=== PATIENT | female | born 1975 | race Caucasian/White ===

== ENCOUNTER 2018-06-30 16:10 | Emergency (ER) | payer MEDICAID, SELFPAY ==
[2018-06-30] VITALS (28 sets, daily range): BP systolic 134–176; BP diastolic 91–131; PULSE 76–108; RESP 12–21; TEMP 36.7; O2SAT 96–99
--- NOTE | 2018-06-30 16:44 | DI.RAD_ITS ---
SYMPTOM/DIAGNOSIS: CHEST AND BACK PAIN PA AND LATERAL CHEST: The heart is normal in size. The lungs are clear. The mediastinal structures and pleura appear intact. CONCLUSION: Normal chest.
[2018-06-30 17:19] LABS: Abs Immature Grans 0.02 k/cumm (0.0-0.09); Absolute Basophil Count 0.03 k/cumm (0.0-0.2); Absolute Eosinophil Count 0.16 k/cumm (0.0-0.7); Absolute Lymphocyte Count 2.27 k/cumm (1.2-3.4); Absolute Monocyte Count 0.81 k/cumm (0.11-0.7); Absolute Neutrophil Count 5.65 k/cumm (1.2-6.7); Basophils % 0.3; Eosinophils % 1.8; HCT 47.5 % (36.0-46.0); HGB 16.3 g/dL (12.0-15.5); Immature Grans % 0.2; Lymphocytes % 25.4; Mean Corp. HGB Concentration 34.3 g/dL (32.0-36.0); Mean Corpuscular Hemoglobin 30.4 pg (27.0-33.0); Mean Corpuscular Volume 88.6 fL (80-95); Monocytes % 9.1; Neutrophils % 63.2; Platelet Count 317 x1000/uL (130-400); RBC 5.36 m/cumm (4.00-5.20); RBC Distribution Width 14.4 % (11.7-14.6); White Blood Cell Count 8.94 k/cumm (4.4-10.8)
[2018-06-30 17:22] LABS: ALT 17 U/L (12-78); AST 15 U/L (15-37); Albumin 3.9 g/dL (3.4-5.0); Alkaline Phosphatase 94 U/L (46-116); Anion Gap 9.6 mmol/L (3-11); BUN 10 mg/dL (7-18); Bilirubin, Direct 0.09 mg/dL (0.00-0.20); Bilirubin, Total 0.5 mg/dL (0.2-1.0); CO2 24.4 mmol/L (21.0-32.0); CREATININE 0.78 mg/dL (0.55-1.02); Chloride 104 mmol/L (98-107); Glucose 130 mg/dL (70-100); Potassium 3.8 mmol/L (3.5-5.1); Sodium 138 mmol/L (136-145); Total Protein 7.6 g/dL (6.4-8.2)
[2018-06-30 17:23] LABS: Troponin I < 0.02 ng/mL (0.00-0.06)
--- NOTE | 2018-06-30 17:29 | DI.VRAD_ITS ---
EXAM: XR Chest, 2 Views CLINICAL HISTORY: 42 years old, female; Pain; Chest pain and other: Back pain; Type not specified; Patient HX: Chest pain, back pain; Additional info: R/O acute disease TECHNIQUE: Frontal and lateral views of the chest. COMPARISON: CR - CHEST 2 VIEWS PA,LAT 03/27/2018 10:48 PM FINDINGS: Lungs: Unremarkable. No consolidation. Pleural space: Unremarkable. No pneumothorax. Heart: Unremarkable. No cardiomegaly. Mediastinum: Unremarkable. Bones/joints: Unremarkable. IMPRESSION: No acute findings. Dictated and Authenticated by: Ry Laureano MD. Ordering:GREGORY RESTREPO MD
[2018-06-30 18:04] LABS: D-Dimer 407 ng/mlFEU (<500)
[2018-06-30 18:14] LABS: PTT Activated 23.8 sec (21.0-31.4); Prothrombin Time 9.6 sec (9.3-10.8)
--- NOTE | 2018-06-30 18:44 | W.ED.GENAD ---
Discharge Plan Disposition Patient Disposition: HOME Condition: Improving Discharge Details Chief Complaint: Chest Pain Clinical Impression: Chest pain, Back pain Primary Care Provider: Laura Lazaro ED Provider: Cecilia Tirado Home Meds and New Rx's Prescriptions: New hydrochlorothiazide 12.5 mg tablet 12.5 mg PO DAILY Qty: 30 RF: 0 albuterol sulfate 90 mcg/actuation aerosol powdr breath activated 2 puff IH Q6H PRN (Reason: shortness of breath or wheezing) Qty: 1 RF: 0 Continue ibuprofen [Advil] 200 MG tablet 800 mg PO PRN PRNRF: 0 arnica flower (bulk) 1 ML tincture 1 ml Topical PRN PRNRF: 0 oxycodone-acetaminophen [Percocet] 1 EACH tablet 1 ea PO HS PRN PRNQty: 5 RF: 0 ranitidine HCl [Zantac] 150 MG tablet 150 mg PO PRN PRNRF: 0 hydrocodone-acetaminophen 1 EACH tablet 1 tab PO Q4H PRN PRNQty: 30 RF: 0 Discharge Instructions Additional Instructions: Smoking cessation is strongly encouraged. Watch your intake of salt and processed foods which may affect your blood pressure. You should receive a call from care management regarding follow-up with a primary care doctor. Return immediately to the emergency department any worsening or new concerning symptoms. Discharge Data Discharge Date/Time-TO BE ENTERED AT DEPARTURE: 06/30/18 21:23 Discharge Physician: Cecilia Tirado Medical Decision Making MDM Narrative Medical decision making narrative: Patient is a 42-year-old female who is a chronic tobacco smoker with history of chronic shoulder pain on Percocet as needed who presents for sudden onset of intense pressure in her middle back which lasted 15 minutes and then resolved. Patient states she had a large amount of gas and burping after that. Patient admits to a 10 minute episode of left-sided chest pain yesterday near her left shoulder which she attributed to her chronic right shoulder pain and denies at present. Patient states today she had pain in her left back that occurred with deep breath and movement. She also admits to cough with yellow thick sputum. She denies fever. She states she has been eating and drinking well. Vitals on arrival noted a heart rate of 108, temp 98.1, respiratory rate 16, oxygen saturation 99 percent, blood pressure 134/97. 1626 -- EKG on arrival notes a rate of 98, sinus, no acute ST elevation or depression, QTc 426, QRS 86. Considering patient's age, complaint of chest and back pain, and tobacco use, a cardiac workup including chest x-ray, d-dimer and urine was ordered. 1834 --labs reviewed and note a white blood cell count of 8.94. Hemoglobin 16.3. D-dimer negative, troponin negative. test negative. Chest x-ray negative. Upon evaluation in room, patient is sitting in bed in no acute distress texting on phone. Patient denies any chest pain at present. She still admits to mild pain in her back with deep breath that is minimal. She denies any shortness of breath. Patient is tenderness to palpation of her left back and left chest. She has pain with movement of her upper body. Discussed with patient the possibilities of her pain which can be musculoskeletal and she is agreeable. Patient was informed of the dangers of smoking and recommended to quit. We will give a dose of Toradol and reassess. Will obtain a second troponin at 8 PM. 2044 --second troponin negative. Patient denies any pain at this time and is requesting to go home. Blood pressure noted to be 174/118 with cuff on forearm. Cuff placed on upper arm and blood pressure 138/92. Patient appears relaxed in no acute distress. Patient states she has had a history of hypertension in the past but has never taken medications. She was instructed on the importance of diet. She is requesting to go home and is requesting a prescription for albuterol and blood pressure medication. We will send home with a prescription for hydrochlorthiazide. We will place patient on the care management list to arrange for follow-up appointment with her primary care doctor, patient is requesting a female PCP. Patient instructed on the importance of quitting smoking. She was instructed to return here immediately with any concerns. Patient was also instructed to monitor her blood pressure daily and that if her blood pressure is too low, do not take the blood pressure medications. Also instructed to alter her intake of salt and processed food and this may help with her blood pressure and she may not need the blood pressure medications. Lab Data Lab Results 06/30/18 06/30/18 06/30/18 Range/Units 16:58 16:58 16:58 WBC 8.94 (4.4-10.8) k/cumm RBC 5.36 H (4.00-5.20) m/cumm Hgb 16.3 H (12.0-15.5) g/dL Hct 47.5 H (36.0-46.0) % MCV 88.6 (80-95) fL MCH 30.4 (27.0-33.0) pg MCHC 34.3 (32.0-36.0) g/dL RDW 14.4 (11.7-14.6) % Plt Count 317 (130-400) x1000/uL MPV 10.0 (8.0-11.0) fL Immature Gran % 0.2 Neutrophils % 63.2 Lymphocytes % 25.4 Monocytes % 9.1 Eosinophils % 1.8 Basophils % 0.3 Absolute Neutrophils 5.65 (1.2-6.7) k/cumm Absolute Lymphocytes 2.27 (1.2-3.4) k/cumm Absolute Monocytes 0.81 H (0.11-0.7) k/cumm Absolute Eosinophils 0.16 (0.0-0.7) k/cumm Absolute Basophils 0.03 (0.0-0.2) k/cumm PT 9.6 (9.3-10.8) sec INR 1.0 (1.0-3.5) APTT 23.8 (21.0-31.4) sec D-Dimer 407 (<500) ng/mlFEU Sodium 138 (136-145) mmol/L Potassium 3.8 (3.5-5.1) mmol/L Chloride 104 (98-107) mmol/L Carbon Dioxide 24.4 (21.0-32.0) mmol/L Anion Gap 9.6 (3-11) mmol/L BUN 10 (7-18) mg/dL Creatinine 0.78 (0.55-1.02) mg/dL Estimated GFR/1.73 m2 >= 60.00 (mL/min/1.73m2) Glucose 130 H (70-100) mg/dL Calcium 9.0 (8.5-10.1) mg/dL Magnesium 2.0 (1.8-2.4) mg/dL Total Bilirubin 0.5 (0.2-1.0) mg/dL Conjugated Bilirubin 0.09 (0.00-0.20) mg/dL AST 15 (15-37) U/L ALT 17 (12-78) U/L Alkaline Phosphatase 94 (46-116) U/L Troponin I < 0.02 (0.00-0.06) ng/mL Total Protein 7.6 (6.4-8.2) g/dL Albumin 3.9 (3.4-5.0) g/dL HPI - General Adult General Mode of arrival: ambulatory. Date/Time Provider Initiated Documentation: 06/30/18 16:41. Limitations to Documentation: no limitations. Information obtained by: patient. HPI Narrative: Patient is a 42-year-old female who presents for a 10-15 minute episode of sudden intense pressure in her mid back that occurred 2 days ago and then resolved followed by burping and gas as well as intermittent left-sided chest pain since yesterday. She denies any chest pain at present. She also admits to cough with white and yellow thick sputum. She denies shortness of breath, fever and states she has been eating and drinking normally. She has a history of chronic left shoulder pain for which she attributed her left-sided chest pain. She states she has also had intermittent left-sided back pain that is worse with deep breath and movement since yesterday. She states she has been eating and drinking normally. She denies recent travel, recent surgery, leg pain or swelling. Past medical history: Chronic shoulder pain Past surgical history: , tooth resection, appendectomy, AC joint repair Social history: Smokes tobacco, denies alcohol or drugs Medications: Percocet as needed, Advil, Zantac Allergies: Prednisone (cramps), latex, red dye, tramadol LMP: 2 weeks ago Related Data Home Medications Medication Instructions Recorded Confirmed arnica flower (bulk) 1 ml TOPICAL PRN PRN 01/26/15 03/27/18 ibuprofen [Advil] 800 mg PO PRN PRN 01/26/15 03/27/18 ranitidine HCl [Zantac] 150 mg PO PRN PRN 04/29/17 03/27/18 Previous Rx's Medication Instructions Recorded oxycodone-acetaminophen [Percocet] 1 ea PO HS PRN PRN #5 tablet 07/31/16 hydrocodone-acetaminophen 1 tab PO Q4H PRN PRN #30 tablet 04/29/17 albuterol sulfate 2 puff IH Q6H PRN #1 each 06/30/18 hydrochlorothiazide 12.5 mg PO DAILY #30 tab 06/30/18 Allergies Allergy/AdvReac Type Severity Reaction Status Date / Time latex Allergy Skin Rash Unverified 03/27/18 22:05 red dye AdvReac Intermediate nausea, Unverified 03/27/18 22:05 vomiting tramadol HCl [From Ultram] AdvReac Intermediate vomiting, Unverified 03/27/18 22:05 motion sickness prednisone AdvReac Other (See Unverified 03/27/18 22:06 Comment) mint flavoring AdvReac Intermediate nausea Uncoded 03/27/18 22:05 vomiting soap with dyes AdvReac Intermediate tingling, Uncoded 03/27/18 22:05 skin cracks General Stated Complaint: Chest Pain RICARDA: 2 Review of Systems Review of Systems All systems reviewed & are unremarkable except as noted in HPI and below Constitutional Denies chills, Denies excessive sweating, Denies fatigue, Denies fever(s), Denies weakness and Denies weight loss Eyes Patient Reports system reviewed and no additional complaints, except as docu and Denies blurry vision ENT Denies vertigo, Denies dizziness, Denies otalgia, Denies nasal congestion, Denies sore throat and Denies throat swelling Cardiovascular Denies chest pain, Denies syncope, Denies rapid heart rate and Denies dyspnea Respiratory Denies dyspnea Gastrointestinal Denies abdominal pain, Denies diarrhea and Denies vomiting Genitourinary Denies hematuria, Denies dysuria and Denies flank pain Musculoskeletal Reports back pain and Denies joint swelling Integumentary/Breasts Denies lesions and Denies rash Neurologic Denies behavioral changes, Denies confusion, Denies vertigo, Denies dizziness, Denies syncope and Denies weakness Psychiatric Denies behavioral changes, Denies confusion and Denies depression Endocrine Denies excessive sweating and Denies fatigue Hematologic/Lymphatic Denies easy bruising and Denies lymphadenopathy Allergic/Immunologic Denies throat swelling [facility] Social History Smoking/Tobacco Use Status: Current every day Surgical History Appendectomy section Exam Const General: cooperative and healthy appearing Orientation: alert and awake HENAR Head: normal to inspection Ears: hearing grossly normal bilaterally and external ears normal General nose exam: external nose normal Face and sinus: normal facial exam Mouth: oral mucosae normal Teeth and gingiva: dentition normal Throat: posterior oropharynx normal Eyes General: appearance normal, both eyes and all related structures Eyelids: eyelids normal Pupils: PERRL EOM: EOM intact bilaterally Neck Neck: normal visual inspection Lymphatic: no lymphadenopathy noted Chest Chest: normal inspection of the chest Chest/axillae images: 1. Localized area of tenderness to palpation. No rash, lesions, ecchymosis or erythema Resp Effort & Inspection: normal respiratory effort and able to speak in complete sentences Auscultation: clear to auscultation bilaterally Cardio Rate: regular rate Rhythm: regular rhythm GI Inspection: normal to inspection Palpation: soft, not firm, no guarding, no hepatosplenomegaly, no masses and nontender Auscultation: normal bowel sounds Back/Spine/Pelvis Back/spine/pelvis image: 1. Localized area of tenderness to palpation. No rash, ecchymosis or erythema. Skin General skin exam: no rashes or lesions noted Neuro General: alert and awake Cognition: normal cognition Speech: speech normal Gait: normal gait Motor: muscle tone normal throughout Sensory Exam: no sensory deficits noted Extrem General: normal to inspection, full ROM, normal capillary refill, no calf tenderness bilaterally and no edema Psych Appearance: grossly normal Mental Status: mental status grossly normal Speech and Movement: speech and movement normal Affect: normal affect Thought Process: normal Course Vital Signs Temperature 98.1 F 06/30/18 16:30 Pulse 108 H 06/30/18 16:30 Respiratory Rate 16 06/30/18 16:30 Blood Pressure 134/97 H 06/30/18 16:30 Pulse Oximetry 99 06/30/18 16:30 Temperature 98.1 F 06/30/18 16:30 Pulse 85 06/30/18 18:16 Respiratory Rate 14 06/30/18 18:20 Blood Pressure 149/104 H 06/30/18 18:16 Pulse Oximetry 98 06/30/18 18:20 Lab/Test Results Lab/Test Results: Laboratory Tests 06/30/18 06/30/18 06/30/18 16:58 16:58 16:58 WBC 8.94 RBC 5.36 H Hgb 16.3 H Hct 47.5 H MCV 88.6 MCH 30.4 MCHC 34.3 RDW 14.4 Plt Count 317 MPV 10.0 Immature Gran % 0.2 Neutrophils % 63.2 Lymphocytes % 25.4 Monocytes % 9.1 Eosinophils % 1.8 Basophils % 0.3 Absolute Neutrophils 5.65 Absolute Lymphocytes 2.27 Absolute Monocytes 0.81 H Absolute Eosinophils 0.16 Absolute Basophils 0.03 PT 9.6 INR 1.0 APTT 23.8 D-Dimer 407 Sodium 138 Potassium 3.8 Chloride 104 Carbon Dioxide 24.4 Anion Gap 9.6 BUN 10 Creatinine 0.78 Estimated GFR/1.73 m2 >= 60.00 Glucose 130 H Calcium 9.0 Magnesium 2.0 Total Bilirubin 0.5 Conjugated Bilirubin 0.09 AST 15 ALT 17 Alkaline Phosphatase 94 Troponin I < 0.02 Total Protein 7.6 Albumin 3.9
[2018-06-30] MEDS: Normal Saline Flush 10 ML SYR IVP (19:00)
[2018-06-30] MEDS: Ketorolac 30 MG/ML VIAL IVP (19:00)
[2018-06-30 20:06] LABS: Troponin I < 0.02 ng/mL (0.00-0.06)
--- NOTE | 2018-07-01 10:13 | PDOC.ERCMPRO ---
Care Management Progress Note 07/01/18-Pt seen on 06/30/18 for high bp and back pain by Dr. Raquel Tirado. 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
== END 2018-06-30 21:23 | disposition home or self-care (01) ==
PROVIDERS: Emergency Provider Physician Assistant; PCP Nurse Practitioner
DX: M54.6 Pain in thoracic spine (principal); R07.9 Chest pain, unspecified; I10 Essential (primary) hypertension; F17.210 Nicotine dependence, cigarettes, uncomplicated
CPT/HCPCS: 36415; 80053; 80076; 81025; 93005; 96374; 99285; 71046; 83735; 84484; 85025; 85379; 85610; 85730; 93010; J1885

== ENCOUNTER 2018-07-24 02:19 | Outpatient (CLI) | payer MEDICAID, SELFPAY ==
[2018-07-24 11:40] LABS: ALT 18 U/L (12-78); AST 14 U/L (15-37); Albumin 3.6 g/dL (3.4-5.0); Alkaline Phosphatase 87 U/L (46-116); BUN 12 mg/dL (7-18); Bilirubin, Total 0.4 mg/dL (0.2-1.0); CREATININE 0.85 mg/dL (0.55-1.02); Calcium 8.8 mg/dL (8.5-10.1); Chloride 104 mmol/L (98-107); Cholesterol 207 mg/dL (50-200); Glucose 102 mg/dL (70-100); HDL Cholesterol 60 mg/dL (40-60); LDL CHOLESTEROL 120 mg/dL (<100); Potassium 4.3 mmol/L (3.5-5.1); Sodium 142 mmol/L (136-145); Total Protein 6.7 g/dL (6.4-8.2); Triglyceride 164 mg/dL (30-150)
== END 2018-07-24 02:39 ==
PROVIDERS: PCP Nurse Practitioner; Visit Provider Nurse Practitioner
DX: I10 Essential (primary) hypertension (principal)
CPT/HCPCS: 36415; 80053; 80061; 83721

== ENCOUNTER 2018-07-24 02:37 | Outpatient (CLI) | payer MEDICAID, SELFPAY ==
[2018-07-24] MEDS: Inhaler, Assist Device 1 EACH MC (16:54)
[2018-07-24] MEDS: Albuterol HFA 18 GM 200 PUFF INH IH (16:54)
--- NOTE | 2018-07-25 10:02 | PFT_ITS ---
PULMONARY FUNCTION TEST REPORT DATE OF SERVICE: July 24, 2018 REQUESTING PROVIDER: Laura Lazaro N.P. Spirometry shows no evidence of obstructive airways disease. No bronchodilator response. Lung volumes show no evidence of restriction. Diffusion capacity normal. Airways resistance normal. IMPRESSION: Overall normal pulmonary function study, however it?s noteworthy that the pre and post bronchodilator spirometry was a very poor patient effort for the expiratory portion of the test. Therefore these results should be taken with caution. AUGUSTA/leonardo D/ SEE SCANNED DOCUMENT IN THE EMR FOR DATA AND GRAPHS
== END 2018-07-24 02:57 ==
PROVIDERS: PCP Nurse Practitioner; Visit Provider Nurse Practitioner
DX: R06.2 Wheezing (principal)
CPT/HCPCS: 94060; 94150; 94726; 94729

== ENCOUNTER 2018-08-06 13:25 | Outpatient (REF) | payer MEDICAID, SELFPAY ==
--- NOTE | 2018-08-06 12:38 | PAPFT_PTH ---
PATIENT: Tiffanie Haskins LOC: [facility] U#:[id number] AGE/SX: 42/F ROOM: RE08/06/[address]: Laura Lazaro : 1975 BED: DIS: 08/06/2018 SPEC #: [id number] RECD: 08/07/18 13:19 STATUS: MIRNA REChioma #: [id number] SYDNEE: 08/06/18 12:[address]: Laura Lazaro DEPT: [facility] Cytology RECD BY: Mercedes David Tissues: 1 - CX/ENDOCX FOR PAP SMEARS Procedures: PAP THIN PREP/UVM Screening HPV DNA PROBE Comments: [id number] (CHLAMYDIA/GC)
[2018-08-08 16:36] LABS: Chlamydia Result Negative; GC Result Negative; Specimen Description SEE COMMENTS
== END 2018-08-06 13:45 ==
LOC: NCHCN 13:25
PROVIDERS: PCP Nurse Practitioner; Visit Provider Nurse Practitioner
DX: Z00.00 Encounter for general adult medical examination without abnormal findings (principal); Z12.4 Encounter for screening for malignant neoplasm of cervix; Z01.419 Encounter for gynecological examination (general) (routine) without abnormal findings; Z11.51 Encounter for screening for human papillomavirus (HPV); Z11.3 Encounter for screening for infections with a predominantly sexual mode of transmission
CPT/HCPCS: 87491; 87591; 88142; 87624

== ENCOUNTER 2018-08-11 00:48 | Outpatient (CLI) | payer MEDICAID, SELFPAY ==
--- NOTE | 2018-08-11 11:07 | DI.CT_ITS ---
SYMPTOMS/DIAGNOSIS: ATYPICAL HEADACHE, R51 CT BRAIN: Noncontrast examination. No priors. There is a normal jain-white matter differentiation. No intracranial hemorrhage, infarct, midline shift or mass effect is identified. The ventricles are intact. The basilar cisterns are patent. There is opacification of a few ethmoid air cells. The remaining visualized paranasal sinuses are clear. No fluid levels are seen. The mastoid air cells are well pneumatized. The calvarium is intact. IMPRESSION: Minimal ethmoid sinusitis. Otherwise negative examination.
== END 2018-08-11 01:08 ==
PROVIDERS: PCP Nurse Practitioner; Visit Provider Nurse Practitioner
DX: R51 Headache (principal); J32.2 Chronic ethmoidal sinusitis
CPT/HCPCS: 70450

== ENCOUNTER 2018-09-05 00:30 | Outpatient (CLI) | payer MEDICAID, SELFPAY ==
--- NOTE | 2018-09-05 12:47 | DI.US_ITS ---
SYMPTOM/DIAGNOSIS: WORSENING DYSMENORRHEA N94.6 PELVIC ULTRASOUND: Transabdominal and transvaginal exams were performed. The uterus measures 9 x 4.7 x 5 cm. No fibroids were identified. The endometrial stripe measures 10 mm in thickness. The ovaries are normal in size and appearance. No cysts or masses are identified. There is no evidence of free fluid or hydronephrosis. IMPRESSION: Pelvic ultrasound is within normal limits.
== END 2018-09-05 00:50 ==
PROVIDERS: PCP Nurse Practitioner; Visit Provider Nurse Practitioner Family
DX: N94.6 Dysmenorrhea, unspecified (principal)
CPT/HCPCS: 76830; 76856

== ENCOUNTER 2021-02-22 13:26 | Outpatient (REF) | payer MEDICAID, SELFPAY ==
[2021-02-22 22:17] LABS: ALT 17 U/L (14-59); AST 8 U/L (15-37); BUN 14 mg/dL (7-18); CREATININE 0.8 mg/dL (0.55-1.02); Calcium 9.3 mg/dL (8.5-10.1); Calculated LDL 90 mg/dL (<100); Chloride 104 mmol/L (98-107); Cholesterol 182 mg/dL (<200); Glucose 93 mg/dL (74-106); HDL Cholesterol 63 mg/dL (40-60); Potassium 4.3 mmol/L (3.5-5.1); Sodium 140 mmol/L (136-145); Triglyceride 146 mg/dL (<150)
[2021-02-22 22:18] LABS: Hemoglobin A1C 5.5 % (<5.7)
== END 2021-02-22 13:27 | disposition home or self-care (01) ==
LOC: NCHCN 13:26
PROVIDERS: PCP Nurse Practitioner; Visit Provider Nurse Practitioner Family
DX: I10 Essential (primary) hypertension (principal); Z13.220 Encounter for screening for lipoid disorders; R73.03 Prediabetes
CPT/HCPCS: 80048; 80061; 83036; 84450; 84460

== ENCOUNTER 2021-07-15 09:35 | Emergency (ER) | payer MEDICAID, SELFPAY ==
[2021-07-15 09:44] VITALS: BP 158/107; PULSE 57; RESP 18; TEMP 36; O2SAT 98
--- NOTE | 2021-07-15 09:57 | ED.GENADUL_ITS ---
Discharge Plan Disposition Patient Disposition: HOME Condition: Stable Discharge Details Clinical Impression: Back pain Primary Care Provider: Laura Lazaro ED Provider: Yue Arrington Home Meds and New Rx's Prescriptions: Continued medroxyprogesterone [Depo-Provera] 150 mg/mL suspension 150 mg IM Q12W Qty: 1 RF: 3 ibuprofen [Advil] 200 MG tablet 800 mg PO PRN PRNRF: 0 arnica flower (bulk) 1 ML tincture 1 ml Topical PRN PRNRF: 0 ranitidine HCl [Zantac] 150 MG tablet 150 mg PO PRN PRNRF: 0 hydrochlorothiazide 12.5 mg tablet 12.5 mg PO DAILY Qty: 30 RF: 0 albuterol sulfate 90 mcg/actuation aerosol powdr breath activated 2 puff IH Q6H PRN (Reason: shortness of breath or wheezing) Qty: 1 RF: 0 Discharge Instructions Instructions: Back Pain (ED) Additional Instructions: X-rays today show no acute abnormality. Please follow-up with your primary care provider to discuss x-ray results. Follow up with primary care provider in 3-5 days. Return to ED sooner if any worsening or concerns. Increase oral fluids. Please take Ibuprofen with food every 4-6 hours as needed for pain and swelling. Do not take any extra Tylenol with the hydrocodone as it has Tylenol in it. Take the hydrocodone with food and no driving or operating heavy machinery while on this medication. Please be seen sooner for any loss of bowel or bladder control. Referrals: Laura Lazaro [Primary Care Provider] - 1 week Discharge Data Discharge Date/Time-TO BE ENTERED AT DEPARTURE: 07/15/21 12:16 Medical Decision Making 45-year-old female presents to the ER with some right lower back pain. She was given baclofen and prednisone which she filled yesterday. She reports that she has been nauseated and did not take the medication this morning. She last took medications last night. She reports that everything hurts. She is moving all 4 extremities without difficulty. 1117: Patient transported to x-ray imaging by DI. Patient has received 2 mg diazepam and 4 mg Zofran ODT. Imaging protocol: XR of the lumbosacral spine. Views: 4 or 5 views. COMPARISON: No relevant prior studies available. FINDINGS: Bones/joints: Mild anterior osteophyte formation L1 through L5. There is no evidence of acute fracture.There is no evidence of malalignment or dislocation. Intervertebral disc spaces are maintained. Soft tissues: Unremarkable. IMPRESSION: 1. There is no evidence of acute fracture.There is no evidence of malalignment or dislocation. 2. Intervertebral disc spaces are maintained. Thank you for allowing us to participate in the care of your patient. Dictated and Authenticated by: Kole Gonzalez MD Patient given hydrocodone Tylenol 1 here in the department and 4 to go as needed for pain. Instructed to follow-up with PCP and discuss strict return instructions and red flags, verbalized understanding. This text was generated using [employer] dictation system, please disregard any oddities of phrase or misspellings. HPI General Mode of arrival: ambulatory . Date/Time Provider Initiated Documentation: 07/15/21 09:40 . Limitations to Documentation: no limitations . Information obtained by: patient, family (Mother), RN notes reviewed and old records reviewed . HPI Narrative: 45-year-old female presents to the ER with chief complaint of lower back pain but she has been seen for previously by her pcp and prescribed baclofen and prednisone that she got filled yesterday. She did not take it this morning due to nausea. 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 She reports that it started Saturday 8 PM after working a shift. She denies any loss of bowel or bladder control she does report right parasp inous lower lumbar tenderness which radiates around to her right hip. She denies any loss of bowel or bladder control denies any problems urinating or burning with urination no urinary hesitancy or constipation. Related Data Home Medications Medication Instructions Recorded Confirmed arnica flower (bulk) 1 ml TOPICAL PRN PRN 01/26/15 12/04/18 ibuprofen [Advil] 800 mg PO PRN PRN 01/26/15 12/04/18 ranitidine HCl [Zantac] 150 mg PO PRN PRN 04/29/17 12/04/18 albuterol sulfate 2 puff IH Q6H PRN #1 each 06/30/18 12/04/18 hydrochlorothiazide 12.5 mg PO DAILY #30 tab 06/30/18 12/04/18 medroxyprogesterone 150 mg/mL 150 mg IM Q12W #1 ml 06/20/21 06/20/21 intramuscular suspension Previous Rx's Medication Instructions Recorded albuterol sulfate 2 puff IH Q6H PRN #1 each 06/30/18 hydrochlorothiazide 12.5 mg PO DAILY #30 tab 06/30/18 medroxyprogesterone 150 mg/mL 150 mg IM Q12W #1 ml 06/20/21 intramuscular suspension Allergies Allergy/AdvReac Type Severity Reaction Status Date / Time latex Allergy Skin Rash Verified 06/20/21 08:51 red dye AdvReac Intermediate nausea, Verified 06/20/21 08:51 vomiting tramadol HCl [From Ultram] AdvReac Intermediate vomiting, Verified 06/20/21 08:51 motion sickness prednisone AdvReac Other (See Verified 06/20/21 08:51 Comment) mint flavoring AdvReac Intermediate nausea Uncoded 06/20/21 08:51 vomiting soap with dyes AdvReac Intermediate tingling, Uncoded 06/20/21 08:51 skin cracks General Stated Complaint: Nk/Back Pain RICARDA: 4 Review of Systems All systems reviewed & are unremarkable except as noted in HPI and below Musculoskeletal Musculoskeletal: Reports back pain PFSH Medical History (Updated 07/15/21 @ 12:01 by Yue Arrington) Back pain Current smoker Current smoker Dysmenorrhea, unspecified Headache Hyperlipidemia Hypertension Impaired fasting glucose Migraine Pain in joint of left shoulder Pain in left knee Pain of left foot Wheezing Surgical History (Updated 07/30/18 @ 14:37 by [employer] MA) Appendectomy section Family History Father Diabetes CAD (coronary artery disease) Sister Thyroid disorder Maternal Grandmother Breast cancer Social History Smoking/Tobacco Use Status: Current every day Tobacco Type: cigarettes Smoking risk assessment performed?: Yes Drug use: Never Do you feel safe at home: Yes Do you feel safe in your relationship?: Yes Female Reproductive History Menstrual control method: progesterone injection History History 4 Para 1 Hx # Term Pregnancies Multiple births Hx # Pregnancies Ectopic pregnancies AB induced Hx Number of Living Children AB spontaneous Exam Narrative Exam Narrative: Constitutional: Alert and oriented x3. Appears stated age. Normal body habitus. Head: Normocephalic, no trauma. Eyes: Pupils PERRLA, Red reflex noted, EOM's intact. Eyelids symmetrical without lesions, discharge, or swelling. ENT: Bilateral TM's WNL, External ear normal to inspection, no mastoid TTP, swelling, or erythema, Nasal turbinates WNL, no nasal discharge. Normal dentition, Posterior pharynx WNL, no exudate. Chest: RRR, Normal S1, S2, distal pulses intact. Resp: Lungs clear to auscultation bilaterally, no wheezes, rales, or rhonchi. Musculoskeletal: Normal gait, 5/5 strength to all four extremities. Right paraspinous lower lumbar tenderness with palpation no midline tenderness. No crepitus no step-off. Skin: No suspicious rashes or lesions. Capillary refill less than 2 sec. Neurologic: Cranial nerves II-XII intact. Alert and oriented x 3. DTR's intact. Hematologic/Lymphatic: No ecchymosis, no lymphadenopathy. Course Vital Signs Vital signs: Vital Signs Temperature 36.0 C L 07/15/21 09:44 Pulse 57 L 07/15/21 09:44 Respiratory Rate 18 07/15/21 09:44 Blood Pressure 158/107 H 07/15/21 09:44 Pulse Oximetry 98 07/15/21 09:44 Temperature 36.0 C L 07/15/21 09:44 Temperature Source Tympanic 07/15/21 09:44 Pulse 57 L 07/15/21 09:44 Respiratory Rate 18 07/15/21 09:44 Respiratory Effort Non-Labored 07/15/21 09:49 Blood Pressure 158/107 H 07/15/21 09:44 Pulse Oximetry 98 07/15/21 09:44 Oxygen Delivery Method Room Air 07/15/21 09:44 Oxygen Flow Rate 0 07/15/21 09:44 Pain Level 7 07/15/21 09:44
--- NOTE | 2021-07-15 10:00 | DI.RAD_ITS ---
Exam(s) XR LUMBAR SPINE COMPLETE EXAM: XR LUMBAR SPINE COMPLETE CLINICAL HISTORY: Low back pain. TECHNIQUE: 2D digital imaging was performed of the lumbar spine. Six images were obtained. AP, lat eral, right oblique, left oblique and L5-S1 spot views were obtained. COMPARISON: No exams were available for comparison FINDINGS: BONES: No fracture or destructive lesion. Mild anterior osteophytes are seen at multiple levels. No facet hypertrophy identified. DISKS: Intervertebral disc spaces are maintained. ALIGNMENT: Lumbar spinal alignment is within normal limits. No spondylolysis or spondylolisthesis. SOFT TISSUE: Normal. IMPRESSION: 1. No acute abnormality. 2. Mild degenerative changes in the lumbar spine. DATA REPOSITORY: RADIATION DOSE DELIVERED:
[2021-07-15] MEDS: diazePAM 2 MG TAB PO (10:36)
[2021-07-15] MEDS: Ondansetron O.D.T. 4 MG TABEF PO (10:37)
--- NOTE | 2021-07-15 11:49 | DI.VRAD_ITS ---
PROCEDURE INFORMATION: Exam: XR Lumbosacral Spine Exam date and time: 07/15/2021 10:14 AM Age: 45 years old Clinical indication: Other: Low back pain TECHNIQUE: Imaging protocol: XR of the lumbosacral spine. Views: 4 or 5 views. COMPARISON: No relevant prior studies available. FINDINGS: Bones/joints: Mild anterior osteophyte formation L1 through L5. There is no evidence of acute fracture.There is no evidence of malalignment or dislocation. Intervertebral disc spaces are maintained. Soft tissues: Unremarkable. IMPRESSION: 1. There is no evidence of acute fracture.There is no evidence of malalignment or dislocation. 2. Intervertebral disc spaces are maintained. Dictated and Authenticated by: Kole Gonzalez MD. Ordering:NICOLETTE Turner MD
[2021-07-15] MEDS: HYDROcodone 5/Acetaminophen 325 TAB PO (12:07)
[2021-07-15 12:09] VITALS: BP 145/97; PULSE 78; RESP 18; O2SAT 97
== END 2021-07-15 12:16 | disposition home or self-care (01) ==
PROVIDERS: Emergency Provider Registered Nurse Emergency; PCP Nurse Practitioner
DX: M54.50 Low back pain, unspecified (principal); R11.0 Nausea
CPT/HCPCS: 99283; 72110

== ENCOUNTER 2021-12-05 09:52 | Outpatient (REF) | payer BC, SELFPAY ==
--- NOTE | 2021-12-05 09:30 | PAPFT_PTH ---
PATIENT: Tiffanie Haskins LOC: [facility] U#:[id number] AGE/SX: 46/F ROOM: RE12/05/[address]: AIME Wolfe : 1975 BED: DIS: 12/05/2021 SPEC #: [id number] RECD: 12/05/21 12:55 STATUS: MIRNA REChioma #: [id number] SYDNEE: 12/05/21 09:[address]: Renetta Rivas DEPT: [facility] Cytology RECD BY: Mercedes David ENTERED: 12/05/21 12:56 SP TYPE: PAPFT OTHR DR: Laura Lazaro Tissues: 1 - CX/ENDOCX FOR PAP SMEARS Procedures: PAP THIN PREP/UVM Screening HPV DNA PROBE Comments: [id number]
== END 2021-12-05 09:53 | disposition home or self-care (01) ==
LOC: LBN 09:52
PROVIDERS: PCP Nurse Practitioner; Visit Provider Nurse Practitioner Family
DX: Z12.4 Encounter for screening for malignant neoplasm of cervix (principal); Z11.51 Encounter for screening for human papillomavirus (HPV)
CPT/HCPCS: 88142; 87624

== ENCOUNTER 2022-05-22 20:25 | Outpatient (REF) | payer BC, SELFPAY ==
[2022-05-23 11:36] LABS: HSV 1 DNA Result Negative (Negative); HSV 2 DNA Result Positive (Negative)
== END 2022-05-22 20:26 | disposition home or self-care (01) ==
LOC: LBN 20:25
PROVIDERS: PCP Nurse Practitioner Family; Visit Provider Nurse Practitioner Family
DX: N90.89 Other specified noninflammatory disorders of vulva and perineum (principal)
CPT/HCPCS: 87529

== ENCOUNTER 2022-08-01 10:12 | Outpatient (REF) | payer BC, SELFPAY ==
[2022-08-01 15:13] LABS: Anion Gap 7.8 mmol/L (3-11); BUN 21 mg/dL (7-18); CO2 27.2 mmol/L (21.0-32.0); CREATININE 0.9 mg/dL (0.55-1.02); Calcium 9.2 mg/dL (8.5-10.1); Chloride 108 mmol/L (98-107); Estimated GFR 78.86 (mL/min/1.73m2); Glucose 114 mg/dL (74-106); Potassium 3.8 mmol/L (3.5-5.1); Sodium 143 mmol/L (136-145)
[2022-08-01 15:29] LABS: Hemoglobin A1C 5.9 % (<5.7)
== END 2022-08-01 10:13 | disposition home or self-care (01) ==
LOC: NCHCN 10:12
PROVIDERS: PCP Nurse Practitioner Family; Visit Provider Family Medicine
DX: I10 Essential (primary) hypertension (principal); R73.03 Prediabetes; Z00.00 Encounter for general adult medical examination without abnormal findings; G43.909 Migraine, unspecified, not intractable, without status migrainosus
CPT/HCPCS: 80048; 83036

== ENCOUNTER 2023-02-05 01:43 | Outpatient (CLI) | payer BC, SELFPAY ==
--- NOTE | 2023-02-05 15:17 | DI.MAMMO_ITS ---
Exam(s) MAMMO SCREENING EXAM: MAMMO SCREENING CLINICAL HISTORY: screening TECHNIQUE: Bilateral full field digital CC and MLO mammographic images were obtained with 3D tomosyn thesis and utilizing computer aided detection (CAD). COMPARISON: There are no priors for comparison. This is a baseline examination. FINDINGS: Masses/Architectural Distortion: None seen. Microcalcifications: No suspicious pleomorphic-type are seen. Skin Thickening/Nipple Retraction: None. IMPRESSION: 1. No significant interval change with no specific features of malignancy noted. 2. Unless there is more urgent need, screening mammography is recommended, as per [employer] guidelines. BI-RADS Category 1 - Negative Breast Density - Category B - Scattered areas of fibroglandular density Breast density category C or D implies that the patient has dense breast tissue. Dense breast tissue is very common and is not abnormal but dense breast tissue can make it harder to find cancer on a ma mmogram. Also, dense breast tissue may increase their breast cancer risk. This information about the result of the mammogram report was provided to the patient to raise their awareness. Use this report when you speak with the patient about their risks for breast cancer, which includes their family hist ory. At that time, you may recommend for more screening tests (Ultrasound or MRI) as they might be us eful based on their risk. A negative radiographic report should not delay biopsy if a dominant or clinically suspicious mass is present. Up to ten percent of cancers are not identified on mammography. A negative report may reinforce clinical impression. Adenosis and dense breasts may obscure an underlying neoplasm. False positive reports average 6 to 10%. Patient will receive a letter notifying them of these results.
== END 2023-02-05 02:03 ==
LOC: DI 01:43
PROVIDERS: PCP Nurse Practitioner Family; Visit Provider Nurse Practitioner Women's Health
DX: Z12.31 Encounter for screening mammogram for malignant neoplasm of breast (principal)
CPT/HCPCS: 77063; 77067

== ENCOUNTER 2023-08-13 14:38 | Outpatient (REF) | payer BC, SELFPAY ==
[2023-08-13 14:48] LABS: HCT 49.8 % (36.0-46.0); HGB 16.4 g/dL (11.2-15.7); MCH 30.4 pg (27.0-33.0); MCHC 32.9 % (32.0-36.0); MCV 92 fL (80-95); MPV 10.3 fL (8.0-11.0); Platelet Count 342 10^3/uL (130-400); RBC 5.39 10^6/uL (3.93-5.22); RDW 13.3 % (11.7-14.6); RDW-SD 45.4 fL
[2023-08-13 15:06] LABS: ALT 21 U/L (14-59); AST 12 U/L (15-37); Albumin 4.4 g/dL (3.4-5.0); Alkaline Phosphatase 104 U/L (46-116); Anion Gap 13.1 mmol/L (3-11); BUN 16 mg/dL (7-18); Bilirubin, Total 0.9 mg/dL (0.2-1.0); CO2 24.9 mmol/L (21.0-32.0); CREATININE 0.8 mg/dL (0.55-1.02); Calcium 9.8 mg/dL (8.5-10.1); Calculated LDL 150 mg/dL (<100); Chloride 104 mmol/L (98-107); Cholesterol 244 mg/dL (<200); Estimated GFR 90.27 (mL/min/1.73m2); Glucose 108 mg/dL (74-106); HDL Cholesterol 67 mg/dL (40-60); Potassium 4.2 mmol/L (3.5-5.1); Sodium 142 mmol/L (136-145); Total Protein 7.8 g/dL (6.4-8.2); Triglyceride 138 mg/dL (<150)
[2023-08-13 15:34] LABS: Hemoglobin A1C 5.6 % (<5.7)
== END 2023-08-13 14:39 | disposition home or self-care (01) ==
LOC: NCHCN 14:38
PROVIDERS: PCP Nurse Practitioner Family; Visit Provider Nurse Practitioner Family
DX: Z00.00 Encounter for general adult medical examination without abnormal findings (principal); I10 Essential (primary) hypertension; R73.03 Prediabetes
CPT/HCPCS: 80053; 80061; 85027; 83036

== ENCOUNTER 2023-10-29 06:58 | Day surgery (SDC) | payer BC, SELFPAY ==
--- NOTE | 2023-10-28 17:31 | W.ANESPRE ---
General Info Date of Service Date Performed: 10/29/23 Height: 5 ft 5 in Weight: 81.647 kg Body Mass Index (BMI): 29.9 Surgical Procedure: Operation Date: 10/29/23 08:05 Proposed Procedure Side Surgeon franklyn Sung MD Meds Allergies and Home Medications Allergies Allergy/AdvReac Type Severity Reaction Status Date / Time prednisone Allergy Mild Verified 10/29/23 07:19 latex Allergy Skin Rash Verified 10/29/23 07:19 red dye AdvReac Intermediate nausea, Verified 10/29/23 07:19 vomiting tramadol HCl [From Ultram] AdvReac Intermediate vomiting, Verified 10/29/23 07:19 motion sickness mint flavoring AdvReac Intermediate nausea Uncoded 10/29/23 07:19 vomiting soap with dyes AdvReac Intermediate tingling, Uncoded 10/29/23 07:19 skin cracks Home Medication Medication Instructions Recorded arnica flower (bulk) 1 ml topical PRN PRN 01/26/15 albuterol sulfate 90 mcg/actuation 2 puff inhalation Q6H PRN 06/30/18 breath activated powder inhaler shortness of breath or wheezing #1 ea hydrochlorothiazide 12.5 mg tablet 12.5 mg PO DAILY #30 tabs 06/30/18 omeprazole 20 mg capsule,delayed 20 mg PO DAILY 12/05/21 release medroxyprogesterone 150 mg/mL 150 mg IM Q12W #1 mL 01/14/23 intramuscular suspension (Depo-Provera) valacyclovir 500 mg tablet 500 mg PO Q12H #6 tabs 01/15/23 (Valtrex) bisacodyl 5 mg tablet,delayed 5 mg PO ONCE #4 tabs 10/10/23 release (Dulcolax (bisacodyl)) polyethylene glycol 3350 17 17 g PO ONCE #238 grams 10/10/23 gram/dose oral powder meclizine 25 mg tablet (Dramamine 25 mg PO BID-TID PRN 10/28/23 (meclizine)) Current Visit Medications: Current Medications Generic Name Dose Route Start Last Admin Trade Name Freq PRN Reason Stop Dose Admin Ringer's Solution 1,000 mls @ 80 mls/hr 10/29/23 06:00 IV 10/29/23 23:59 INFUSION KUNAL IV Miscellaneous Supplies 1 each 10/29/23 06:00 Iv Access IV 10/29/23 23:59 DIRECTED KUNAL Sodium Chloride 0 ml 10/29/23 06:00 Normal Saline Flush 10 Ml Syr IV 10/29/23 23:59 PRN PRN Sodium Chloride 0 ml 10/29/23 06:00 Normal Saline 10 Ml Vial IJ 10/29/23 23:59 DIRECTED PRN Sterile Water 0 ml 10/29/23 06:00 Water,Injection,Sterile 10 Ml Vial IJ 10/29/23 23:59 DIRECTED PRN PFSH Active Problems Active Problems: Problem Status Onset Code Encounter for Depo-Provera contraception Z30.42 Non-ulcer dyspepsia K30 HSV (herpes simplex virus) anogenital infection A60.9 Current smoker F17.200 Back pain M54.9 Migraine G43.909 Wheezing R06.2 Hypertension I10 Impaired fasting glucose R73.01 Hyperlipidemia E78.5 Headache R51 Medical History Medical History Current smoker Pain in joint of left shoulder Pain of left foot Pain in left knee Surgical History Surgical History Hx of shoulder surgery section Appendectomy Tobacco Smoking/Tobacco Use Status: Current every day Tobacco Type: cigarettes Smoking packs per day: 1.5 Smoking cigarettes per day: 30.0 Alcohol Alcohol Intake: never Substance Use Substance use: Daily Substance use type: marijuana Prental History History 4 Para 1 Hx # Term Pregnancies Multiple births Hx # Pregnancies Ectopic pregnancies AB induced Hx Number of Living Children AB spontaneous Vital Signs and Lab Results Vital Signs Most Recent Vital Signs in EMR: Temp Pulse Resp BP Pulse Ox 36.7 C 99 H 18 141/87 H 99 10/29/23 07:22 10/29/23 07:22 10/29/23 07:22 10/29/23 07:22 10/29/23 07:22 Lab Results Blood Type / Crossmatch: No Data to Display Complete Blood Count: No Data to Display Complete Metabolic Panel: No Data to Display Liver Function Panel: No Data to Display Coagulation Panel: No Data to Display Cardiac Panel: No Data to Display Arterial Blood Gas: No Data to Display Venous Blood Gas: No Data to Display Pancreas Panel: No Data to Display Thyroid Panel: No Data to Display Infectious Disease: No Data to Display Blood Cultures: No Data to Display Toxicology Panel: No Data to Display Panel: No Data to Display Imaging and Studies Imaging and Studies Study information below may be from another EMR and interpreted by another provider. Please see original notes in EMR for more complete details. Pulmonary Function Summary: 2018: normal. poor pt participation. Anesthesia Assessment and Plan Anesthesia History Personal History: No History of Anesthesia Complications Family History: No Family History of Anesthesia Complications Exercise Tolerance Exercise Tolerance: Metabolic Equivalents>4 Cardiac & Pulmonary Exam Cardiac Exam: Normal S1/S2 Heart Sounds Pulmonary Exam: Clear Bilateral Breath Sounds Implantable Cardiac Device Does patient have a Pacemaker or an ICD?: No Airway Exam Known Difficult Airway: No Mallampati Class: 3 Mouth Opening: Normal (> 3cm) Thyromental Distance: Greater than 3 cm Neck Range of Motion: Full ROM Neck Circumference: Thick Teeth Condition: Normal Dentition and Removable Dentures/Plates Upper ASA Classification ASA Score: ASA 2 Emergency Case?: No NPO Status NPO Status: NPO Clears >2 hours, Solids >8 hours Status Status: Positive HCG (has not had sex in 4 years. ) Anesthesia Plan Resuscitation Status: Full Code Anesthesia Technique: General Anesthesia Airway Planned: Natural Airway Monitors Used: Standard Monitors Preoperative Comments:: 48 yo female for colo. Sig PMHx: RAD (albuterol, normal PFT years ago), GERD (omeprazole) smoker, cannabis.
[2023-10-29 07:22] VITALS: BP 141/87; PULSE 99; RESP 18; TEMP 36.7; O2SAT 99
[2023-10-29] MEDS: Lactated Ringers 1,000 ML 80 ML IV (07:45)
[2023-10-29 08:01] VITALS: BMI 29.9
--- NOTE | 2023-10-29 08:06 | COLE_ITS ---
Date of service: 10/29/23 Time of Service: 08:06 Colonoscopy Report Procedure Description: PROCEDURES PERFORMED: 1. Colonoscopy with hot snare polypectomy x2 PREOPERATIVE DIAGNOSIS: Screening colonoscopy POSTOPERATIVE DIAGNOSIS: Colon polyps SURGEON: Broderick Sung MD INDICATION FOR PROCEDURE: The patient is a 48-year-old woman without symptoms due for screening colonoscopy. No family history of colon cancer but has a sister who had advanced adenomatous polyp. FINDINGS: Normal terminal ileum. In the sigmoid colon a 10-12 mm sessile polyp was removed with hot snare technique. Further along in the sigmoid colon another 7-5 mm polyp was removed with hot snare technique. No obvious diverticular disease and no hemorrhoid disease was noted. SURVEILLANCE interval/FOLLOW-UP: 3 years because of the family history and the findings today. SPECIMENS: yes EBL: Minimal COMPLICATIONS: None QUALITY of prep: Excellent Procedure in detail: The patient gave written consent and was in agreement with the indications, the potential risks as well as the benefits of the procedure. They taken to the endoscopy suite and laid in the left lateral decubitus position. A timeout was performed and anesthesia was administered which was tolerated well. I started the procedure. Digital rectal and visual examination was performed and grossly within normal limits. A well-lubricated flexible colonoscope was then introduced and passed without any notable difficulty all the way to the cecum identified by the ileocecal valve and the appendiceal orifice. The terminal ileum was briefly intubated and looked normal. The scope was then slowly withdrawn with the abo ve-noted findings. The patient tolerated the procedure well and was taken to the PACU in hemodynamically stable condition.
--- NOTE | 2023-10-29 08:09 | W.PM.DSUDISC ---
Date of service: 10/29/23 Time of Service: 08:09 Discharge Plan Disposition Patient Disposition: Home Condition: Good Discharge Details Attending Provider: Bg Sung Primary Care Provider: Hayley Henson Home Meds and New Rx's Prescriptions: No Action omeprazole 20 mg capsule,delayed release(DR/EC) 20 mg PO DAILY valacyclovir [Valtrex] 500 mg tablet 500 mg PO Q12H Qty: 6 5RF bisacodyl [Dulcolax (bisacodyl)] 5 mg tablet,delayed release (DR/EC) 5 mg PO ONCE Qty: 4 0RF Rx Instructions: Take per colonoscopy instructions provided by ordering providers office polyethylene glycol 3350 17 gram/dose powder 17 g PO ONCE Qty: 238 0RF Rx Instructions: Take per colonoscopy instructions provided by ordering providers office medroxyprogesterone [Depo-Provera] 150 mg/mL suspension 150 mg IM Q12W Qty: 1 3RF arnica flower (bulk) 1 ML tincture 1 ml Topical PRN PRN hydrochlorothiazide 12.5 mg tablet 12.5 mg PO DAILY Qty: 30 0RF albuterol sulfate 90 mcg/actuation aerosol powdr breath activated 2 puff IH Q6H PRN (Reason: shortness of breath or wheezing) Qty: 1 0RF Rx Instructions: administer with spacer meclizine [Dramamine (meclizine)] 25 mg tablet 25 mg PO BID-TID PRN Discharge Instructions Additional Instructions: FINDINGS: A couple of advanced polyps were found and removed from your colon today. This is why we do the colonoscopy. You will get called with the pathology results in a couple of weeks. You should repeat another colonoscopy in 3 years. Stand Alone Forms: Colonoscopy Post Instructions Activity:: Activity as Tolerated Diet:: As Tolerated Discharge Orders Discharge Orders: Discharge Order (Routine); Ordered 10/29/23 Ordered By: Bg Sung
--- NOTE | 2023-10-29 08:14 | SUR.PREOP ---
Dr. Sung and Dave Mclean, [facility] were made aware of positive HCG test today during pre-op admission
--- NOTE | 2023-10-29 08:24 | BOWEL_PTH ---
PATIENT: Tiffanie Haskins LOC: [facility] U#:[id number] AGE/SX: 48/F ROOM: RE10/29/[address]: Bg Sung : 1975 BED: DIS: 10/29/2023 SPEC #: [id number] RECD: 10/29/23 12:37 STATUS: MIRNA CLAIRE #: [id number] SYDNEE: 10/29/23 08:[address]: Bg Sung DEPT: Surgical Specimen RECD BY: Mercedes David ENTERED: 10/29/23 12:38 SP TYPE: Bowel OTHR DR: Hayley Henson Tissues: 1 - BIOPSY BOWEL 2 - BIOPSY BOWEL Procedures: GROSS AND MICRO LEVEL 4 Comments: [id number]
[2023-10-29 08:42] VITALS: PULSE 73; RESP 16; TEMP 36.4; O2SAT 99
--- NOTE | 2023-10-29 08:47 | W.ANESPOSTOP ---
Postoperative Evaluation Date, Time and Location Date Performed: 10/29/23 Time Performed: 08:47 Patient Location: Day Surgery Unit Vital Signs Most Recent Imported Vital Signs: Most Recent Vital Signs Temp Pulse Resp BP Pulse Ox 36.4 C L 73 16 141/87 H 99 10/29/23 08:42 10/29/23 08:42 10/29/23 08:42 10/29/23 07:22 10/29/23 08:42 Pain Score Most Recent Pain Score: Most Recent Pain Score Pain Level 0 10/29/23 08:42 Assessment Mental Status: Awake (Alert & Oriented to Patient Baseline) Airway and Respiratory Function: Patent airway with normal (patient baseline) respiratory exam Cardiovascular Function: Hemodynamically Stable Hydration Status: Adequately Hydrated Nausea & Vomiting: No Nausea or Vomiting Pain: Pt. Denies Any Pain Peripheral Nerve Block: Patient did not receive a nerve block
[2023-10-29 09:10] VITALS: BP 117/88; PULSE 82; RESP 16; TEMP 36.6; O2SAT 99
== END 2023-10-29 09:36 | disposition home or self-care (01) ==
PROVIDERS: PCP Nurse Practitioner Family; Visit Provider Student in an Organized Health Care Education/Training Program
PROC: 0DJD8ZZ Inspection of Lower Intestinal Tract, Via Natural or Artificial Opening Endoscopic (ICD-10-PCS; CPT 45378; principal; 2023-10-29 08:00)
DX: Z12.11 Encounter for screening for malignant neoplasm of colon (principal); K63.5 Polyp of colon; F17.200 Nicotine dependence, unspecified, uncomplicated; I10 Essential (primary) hypertension; F10.20 Alcohol dependence, uncomplicated; K21.9 Gastro-esophageal reflux disease without esophagitis; J45.909 Unspecified asthma, uncomplicated
CPT/HCPCS: 45385; 123; 81025; 88305; 00123; J2704

== ENCOUNTER 2024-08-18 14:03 | Outpatient (REF) | payer BC, SELFPAY ==
[2024-08-18 16:37] LABS: HCT 45.1 % (36.0-46.0); HGB 15.2 g/dL (11.2-15.7); MCH 31.2 pg (27.0-33.0); MCHC 33.7 % (32.0-36.0); MCV 93 fL (80-95); MPV 10.9 fL (8.0-11.0); Platelet Count 314 10^3/uL (130-400); RBC 4.87 10^6/uL (3.93-5.22); RDW 13.2 % (11.7-14.6); RDW-SD 45.1 fL; WBC 7.89 10^3/uL (4.4-10.8)
[2024-08-18 16:50] LABS: ALT 16 U/L (14-59); AST 12 U/L (15-37); Albumin 3.6 g/dL (3.4-5.0); Alkaline Phosphatase 98 U/L (46-116); Anion Gap 10.5 mmol/L (3-11); BUN 15 mg/dL (7-18); CO2 24.5 mmol/L (21.0-32.0); Calcium 9.2 mg/dL (8.5-10.1); Calculated LDL 100 mg/dL (<100); Chloride 108 mmol/L (98-107); Cholesterol 186 mg/dL (<200); Estimated GFR 68.63 (mL/min/1.73m2); Glucose 137 mg/dL (74-106); HDL Cholesterol 49 mg/dL (40-60); Potassium 3.9 mmol/L (3.5-5.1); Sodium 143 mmol/L (136-145); Total Protein 6.8 g/dL (6.4-8.2); Triglyceride 186 mg/dL (<150)
[2024-08-18 17:00] LABS: Hemoglobin A1C 5.8 % (<5.7)
== END 2024-08-18 14:04 | disposition home or self-care (01) ==
LOC: NCHCN 14:03
PROVIDERS: PCP Nurse Practitioner Family; Visit Provider Nurse Practitioner Family
DX: Z00.00 Encounter for general adult medical examination without abnormal findings (principal); R73.03 Prediabetes
CPT/HCPCS: 80053; 80061; 85027; 83036

== ENCOUNTER 2025-04-26 02:28 | Outpatient (CLI) | payer BC, SELFPAY ==
--- NOTE | 2025-04-26 | DI.MAMMO_ITS ---
Exam(s) MAMMO SCREENING EXAM: MAMMO SCREENING CLINICAL HISTORY: Screening, Z12.31 TECHNIQUE: Bilateral full field digital CC and MLO mammographic images were obtained with 3D tomosynthesis and utilizing computer aided detection (CAD). COMPARISON: Comparison is made with prior examinations. FINDINGS: Masses/Architectural Distortion: No suspicious masses or areas of architectural distortion are present. Microcalcifications: No suspicious pleomorphic-type are seen. Skin Thickening/Nipple Retraction: None. IMPRESSION: 1. No significant interval change with no specific features of malignancy noted. 2. Unless there is more urgent need, screening mammography is recommended, as per [employer] guidelines. BI-RADS Category 1 - Negative Breast Density - Category B - There are scattered areas of fibroglandular density. Breast density Category C or D implies that the patient has dense breast tissue. Dense breast tissue can make it harder to find cancer on a mammogram. Dense breast tissue is also associated with an increased risk of breast cancer. This information about the result of the mammogram report was provided to the patient to raise their awareness. Use this report when you speak with the patient about their risks for breast cancer, which includes their family history. At that time, you may recommend additional screening tests (Ultrasound or MRI) as these tests may add significant information. A negative radiographic report should not delay biopsy if a dominant or clinically suspicious mass is present. Up to ten percent of cancers are not identified on mammography. A negative report may reinforce clinical impression. Adenosis and dense breasts may obscure an underlying neoplasm. False positive reports average 6 to 10%. Patient will receive a letter notifying them of these results.
== END 2025-04-26 02:48 ==
LOC: DI 02:28
PROVIDERS: PCP Family Medicine; Visit Provider Nurse Practitioner Family
DX: Z12.31 Encounter for screening mammogram for malignant neoplasm of breast (principal); R92.323 Mammographic fibroglandular density, bilateral breasts
CPT/HCPCS: 77063; 77067

== ENCOUNTER 2025-06-08 15:27 | Outpatient (REF) | payer BC, SELFPAY ==
[2025-06-08 16:10] LABS: ALT 18 U/L (14-59); AST 12 U/L (15-37); Albumin 3.8 g/dL (3.4-5.0); Alkaline Phosphatase 99 U/L (46-116); Anion Gap 11.6 mmol/L (3-11); BUN 14 mg/dL (7-18); Bilirubin, Total 0.5 mg/dL (0.2-1.0); CO2 26.4 mmol/L (21.0-32.0); Calcium 9.0 mg/dL (8.5-10.1); Chloride 104 mmol/L (98-107); Estimated GFR 77.40 (mL/min/1.73m2); Glucose 185 mg/dL (74-106); Potassium 3.5 mmol/L (3.5-5.1); Sodium 142 mmol/L (136-145); Total Protein 6.9 g/dL (6.4-8.2)
== END 2025-06-08 15:28 | disposition home or self-care (01) ==
LOC: NCHCN 15:27
PROVIDERS: PCP Family Medicine; Visit Provider Nurse Practitioner Family
DX: I10 Essential (primary) hypertension (principal)
CPT/HCPCS: 80053